=== PATIENT | female | born 1950 | race Two or more races ===

== ENCOUNTER 2020-12-30 15:37 | Emergency (ER) | payer OTHER ==
[~2020-12-30] VITALS: Ht 157.5 cm; Wt 69.4 kg
[2020-12-30] MEDS ORDERED: SYNTHROID75 MCG (16:19)
[2020-12-30] MEDS ORDERED: HUMALOG100 UNIT/1 (16:20)
[2020-12-30] MEDS ORDERED: LANTUS SOL100 UNIT/1 (16:20)
[2020-12-30] MEDS ORDERED: RANEXA500 MG (16:20)
[2020-12-30] MEDS ORDERED: CARVEDILOL12.5 MG (16:20)
[2020-12-30] MEDS ORDERED: BYDUREON B2 MG/0.85 (16:20)
[2020-12-30] MEDS ORDERED: JANUMET 50-1,01 EACH (16:20)
[2020-12-30] MEDS ORDERED: ZOLOFT25 MG (16:21)
[2020-12-30] MEDS ORDERED: PRILOSEC10 MG (16:21)
[2020-12-30] MEDS ORDERED: ALDACTONE50 MG (16:21)
[2020-12-30] MEDS ORDERED: [UNRECOGNIZED DRUG - OTHER] (16:21)
[2020-12-30] MEDS ORDERED: ESTAZOLAM1 MG (16:21)
[2020-12-30] MEDS ORDERED: EZALLOR SPRINKLE5 MG (16:22)
== END 2020-12-30 17:55 | disposition home or self-care (01) ==
LOC: ER 15:37
DX: S00.12XA Contusion of left eyelid and periocular area, initial encounter (principal); R60.0 Localized edema; W18.39XA Other fall on same level, initial encounter; Y93.89 Activity, other specified; Y92.89 Other specified places as the place of occurrence of the external cause; Y99.8 Other external cause status

== ENCOUNTER 2021-01-06 07:01 | Day surgery (SDC) | payer OTHER ==
[~2021-01-06 07:01] MED LIST: ALDACTONE50 MG; BYDUREON B2 MG/0.85; CARVEDILOL12.5 MG; ESTAZOLAM1 MG; EZALLOR SPRINKLE5 MG; HUMALOG100 UNIT/1; JANUMET 50-1,01 EACH; LANTUS SOL100 UNIT/1; PRILOSEC10 MG; RANEXA500 MG; SYNTHROID75 MCG; ZOLOFT25 MG; [UNRECOGNIZED DRUG - OTHER]
== END 2021-01-06 12:35 | disposition home or self-care (01) ==
LOC: AMB-ENDOS 07:01
PROVIDERS: ATTEND Surgery
DX: D13.2 Benign neoplasm of duodenum (principal); K29.50 Unspecified chronic gastritis without bleeding; Z20.822 Contact with and (suspected) exposure to COVID-19